=== PATIENT | male | born 1945 | race Caucasian/White ===

== ENCOUNTER 2023-08-07 14:28 | Emergency (ER) | payer MEDICARE, SELFPAY ==
[2023-08-07 14:34] VITALS: BP 145/80
[2023-08-07 14:38] VITALS: BMI 32.1
--- NOTE | 2023-08-07 14:54 | ED.GENMED ---
History of Present Illness
<Bridgett Parr PA-C - Last Filed: 08/09/23 09:01>
General
Chief Complaint: Fall
Source: patient
Exam Limitations: none
Time Seen by Provider: 08/07/23 14:41
Nursing documentation reviewed up to this point in time: agreed with
Travel History
Have you had any contact with someone who has COVID-19?: No
Do you have any symptoms of coronavirus? Fever > 100 degrees, chills, cough, shortness of breath, sore throat, loss of taste or smell, muscle aches, or headache?: No
History of Present Illness
History of Present Illness:
78 Y/O m WITH H/O HTN, HLD, SPINAL STEONSIS, CHRONIC WEAKNESS LEFT LEG POLIO
uses walker
wass going to see dr. smith in the office at the [facility] and the door swung and knocked him backwards onto his back
no head strike, no thinners
having lower back and bilateral hip pain
no incontinence, no weakensin he legs, no new numbness
no headache, dizziness, cp, sob, abdominal pain
ems called for transport here
Past History
<Bridgett Parr PA-C - Last Filed: 08/09/23 09:01>
Past History
ED Past Medical History: Cancer (Prostate), HTN, Hypercholesterolemia and Other (Polio)
ED Past Surgical History: Appendectomy, Orthopedic (Status post recent left total knee surgery ), Urological (Prostatectomy) and Other (Bariatric)
Social History
Tobacco: Non-smoker
Alcohol: Occasional
Personal: Single
Living: alone
Employment: Retired
Family History
Family History: Negative Diabetes, Hypertension or Early CAD
Review of Systems
<KAEL Varela Last Filed: 08/09/23 09:01>
Review of Systems
Allergies reviewed?: Yes
All Other Systems: Not applicable
Phy Exam
<Bridgett Parr PA-C - Last Filed: 08/09/23 09:01>
Physical Exam
Physical Exam:
GENERAL: Alert , in no apparent distress
HEAD: NCAT
NECK: no midline tenderness, active ROM intact, no paraspinal muscle tenderness;
EYE: pupils equal and reactive, EOMs intact.
ENT: o/p clr, mmm. no hemotympanum
CARDIAC: Regular rate and rhythm, no edema
LUNGS: Clear breath sounds bilaterally, no acute respiratory distress, no wheezes/rales/rhonchi
ABDOMEN: Soft, without focal tenderness, no r/g, no cvat'
back:
NEUROLOGICAL: Alert and oriented, no focal neuro deficits, CN intact, 5/5 strength, sensation intact
SKIN: Warm and dry,
MUSCULOSKELETAL: No edema, well perfused.
PSYCH: Normal and appropriate interaction.
Course
<Bridgett Parr PA-C - Last Filed: 08/09/23 09:01>
Orders/Labs/Results
Orders:
Orders
08/07/23 14:49
CR Hips ELIZABETH w/wo Pel Min 5 Vw* Urgent
Reason For Exam: fall backwards, b/l hip pain
Include a pelvis x-ray?: Yes
CR Lumbar Spine 2 Or 3 Views Urgent
Reason For Exam: fall lower back pain
08/07/23 14:50
Acetaminophen [Tylenol] 650 mg PO NOW STA
Vital Signs
Initial and Last Documented VS:
Initial Vital Signs
Temp Pulse Resp BP Pulse Ox
98.0 F 60 16 145/80 98
08/07/23 14:34 08/07/23 14:34 08/07/23 14:34 08/07/23 14:34 08/07/23 14:34
Last Documented Vital Signs
Temp Pulse Resp BP Pulse Ox
98.0 F 60 16 145/80 98
08/07/23 14:34 08/07/23 14:34 08/07/23 14:34 08/07/23 14:34 08/07/23 14:34
<Aurelio Evans PA-C - Last Filed: 08/07/23 16:56>
Orders/Labs/Results
Orders:
Orders
08/07/23 14:49
CR Hips ELIZABETH w/wo Pel Min 5 Vw* Urgent
Reason For Exam: fall backwards, b/l hip pain
Include a pelvis x-ray?: Yes
CR Lumbar Spine 2 Or 3 Views Urgent
Reason For Exam: fall lower back pain
08/07/23 14:50
Acetaminophen [Tylenol] 650 mg PO NOW STA
Vital Signs
Initial and Last Documented VS:
Initial Vital Signs
Temp Pulse Resp BP Pulse Ox
98.0 F 60 16 145/80 98
08/07/23 14:34 08/07/23 14:34 08/07/23 14:34 08/07/23 14:34 08/07/23 14:34
Last Documented Vital Signs
Temp Pulse Resp BP Pulse Ox
98.0 F 60 16 145/80 98
08/07/23 14:34 08/07/23 14:34 08/07/23 14:34 08/07/23 14:34 08/07/23 14:34
<Bridgett Parr PA-C - Last Filed: 08/09/23 09:01>
MDM/Problems Addressed
Differential Diagnosis Includes:
lumbar fracture, hip fracture, bruise
MDM/Problems Addressed:
78 y/o M with htn, hld, polio
fall here at the [facility] int he door for an appointment
bakwards onto his back/hips
was picked up and transported
uses a walker at baseline
no head sstrike, neck pain, loc, cp, sob
on exa mpt has pain with movmenet of his back
neg straight leg raise
able to range his hips
s/p hip replacements a year or so ago
will eval with xrays
assess weight bearing after films
<Aurelio Evans PA-C - Last Filed: 08/07/23 16:56>
*Critical Care Note
Total Time (30-74mins, 75-104mins- exclusive of procedures): Not Applicable
<Aurelio Evans PA-C - Last Filed: 08/07/23 16:56>
Update Note
Update Note:
Received care of patient upon signout pending x-rays. I have personally reviewed x-rays of the lumbar spine and pelvis. There is no acute traumatic injury noted on these films. Radiology agrees. Will ambulate the patient and if he is able to do
so will be discharged
Patient able to ambulate to and from the bathroom with his walker. Stable for discharge home with Tylenol for pain.
ED Attending Note
<Bridgett Parr PA-C - Last Filed: 08/09/23 09:01>
-
Portions of this chart may have been created with voice recognition software.� Occasional wrong word or��sound alike� substitutions may have occurred due to the inherent limitations of voice recognition software.
Discharge Plan
Departure
Patient Disposition: Home (Routine Discharge)
Date of Disposition: 08/07/23
Time of Disposition: 16:55
Patient with high blood pressure during this ER visit?: No
Discharge Problem:
Fall
Instructions: Preventing falls in adults
Prescriptions:
No Action
Multivitamin Gummies
1 tab PO DAILY
acetaminophen [Tylenol Extra Strength] 500 MG tablet
500 mg PO TID PRN (Reason: pain)
furosemide [Lasix] 40 mg Tablet
40 mg PO DAILY
metoprolol succinate [Toprol XL] 25 mg Tablet Extended Release 24 Hr
25 mg PO DAILY
losartan 50 MG tablet
50 mg PO DAILY Qty: 30 0RF
atorvastatin 40 MG tablet
40 mg PO QPM Qty: 30 0RF
trazodone 50 MG tablet
50 mg PO HS Qty: 30 0RF
paroxetine HCl 20 MG tablet
20 mg PO HS Qty: 30 0RF
pantoprazole 40 MG tablet,delayed release (DR/EC)
40 mg PO DAILY Qty: 30 0RF
Referrals:
Dale Reynolds I., DO [Family Provider] -
Activity Restrictions/Additional Instructions:
Use Tylenol if needed for pain. Use her walker for ambulation peer return here if worse otherwise follow-up with your treating physicians
Interventions
Interventions:
*Risk Screen - Suicide Last Done: 08/07/23 14:34
*General Assessment Last Done: 08/07/23 14:34
*Neglect/Abuse Screening Last Done: 08/07/23 14:34
ED- Fall Risk Assessment Last Done: 08/07/23 14:34
*ED COVID-19 Vaccine History Last Done: 08/07/23 14:34
*Nursing Disposition Last Done: 08/07/23 17:15
ED-Musculoskeletal Assessment Last Done: 08/07/23 14:34
ED- Neurological Assessment Last Done: 08/07/23 14:38
ED-Skin Assessment Last Done: 08/07/23 14:38
Discharge Date and Time
Discharge Date/Time: 08/07/23 17:21
Print Language: LITHUANIAN
[2023-08-07] MEDS: TYLENOL 650 MG PO (15:00)
== END 2023-08-07 17:21 | disposition home or self-care (01) ==
LOC: EMR 14:28
PROVIDERS: EMERGENCY PHYSICIAN Emergency Medicine; FAMILY PHYSICIAN Internal Medicine
DX: M54.50 Low back pain, unspecified (principal); M25.552 Pain in left hip; M25.551 Pain in right hip; I10 Essential (primary) hypertension; E78.00 Pure hypercholesterolemia, unspecified; W22.8XXA Striking against or struck by other objects, initial encounter
CPT/HCPCS: 99283; 72100; 73523

== ENCOUNTER → 2023-09-15 10:47 | Outpatient (REF) | payer MEDICARE, SELFPAY ==
[2023-09-15 12:18] LABS: PSA, Total - Diagnostic 0.15 ng/ml (0.0-4.0)
== END ==
LOC: REG 10:47
PROVIDERS: ATTENDING PHYSICIAN Specialist; FAMILY PHYSICIAN Internal Medicine
DX: C61 Malignant neoplasm of prostate (principal)
CPT/HCPCS: 36415; 84153

== ENCOUNTER → 2024-07-25 08:14 | Outpatient (REF) | payer MEDICARE, SELFPAY ==
[2024-07-25 09:08] LABS: % Basophils 1.2 % (0-2); % Eosinophils 3.4 % (0-6); % Immature Granulocytes 0.4 % (0-0.5); % Lymphocytes 30.1 % (20.5-51.1); % Monocytes 10.6 % (1.7-9.3); % Neutrophils 54.3 % (42.2-75.2); Absolute Basophils 0.1 10^3/uL (0-0.2); Absolute Eosinophils 0.2 10^3/uL (0-0.7); Absolute Lymphocytes 1.5 10^3/uL (1.2-3.4); Absolute Monocytes 0.5 10^3/uL (0.1-0.6); Absolute Neutrophils 2.7 10^3/uL (1.4-6.5); Hematocrit 31.9 % (39.0-52.0); Hemoglobin 9.7 g/dL (13.0-18.0); Mean Corp Hgb Conc. 30.4 g/dL (33.0-37.0); Mean Corpuscular Hgb 23.4 pg (27.0-31.0); Mean Corpuscular Volume 77.1 fL (80.0-94.0); Mean Platelet Volume 9.6 fL (7.4-10.4); Nucleated Red Blood Cells % 0 % (-); Platelet Count 216 10^3/uL (130-400); Red Blood Cell Count 4.14 10^6/uL (4.70-6.10); Red Cell Dist. Width 18.8 % (11.5-14.5)
[2024-07-25 09:10] LABS: Ionized Calcium 1.21 mMOL/L (1.15-1.33)
[2024-07-25 10:07] LABS: Albumin 3.5 g/dl (3.5-5.0); Blood Urea Nitrogen 21 mg/dl (9-20); Carbon Dioxide 27 mmol/L (22-30); Chloride 110 mmol/L (98-107); Glucose 87 mg/dl (70-99); Total Cholesterol 117 mg/dl (50-199); Total Protein 6.3 g/dl (6.3-8.2); eGFR > 60.00
[2024-07-25 10:21] LABS: ALT (SGPT) 13 U/L (0-50); AST (SGOT) 18 U/L (17-59); Alkaline Phosphatase 82 U/L (38-126); Calcium 9.1 mg/dl (8.4-10.2); Direct Bilirubin 0.3 mg/dl (0.0-0.4); HDL Cholesterol 52 mg/dl; Iron 34 ug/dl (49-181); LDL Cholesterol, Calculated 55 mg/dl; Magnesium 1.8 mg/dl (1.6-2.3); Potassium 3.9 mmol/L (3.5-5.1); Sodium 142 mmol/L (135-145); Total Bilirubin 0.6 mg/dl (0.2-1.3); Triglyceride 50 mg/dl (10-149); Very Low Density Lipoprotein 10 mg/dl (0-30); Vitamin D, 25-OH*** 36.7 ng/mL (30-80)
[2024-07-25 10:32] LABS: TSH Reflex To Free T4 0.82 uIU/ml (0.47-4.68)
[2024-07-25 10:36] LABS: Ferritin 8.6 ng/ml (17.9-464.0)
[2024-07-25 11:07] LABS: Folate > 20.0 ng/ml (2.76-20); Vitamin B12 461 pg/ml (239-931)
[2024-07-27 05:17] LABS: Zinc 59.8 ug/dL (60.0-120.0)
[2024-07-27 20:29] LABS: Vitamin B1, Whole Blood 160 nmol/L (70-180)
== END ==
LOC: REG 08:14
PROVIDERS: ATTENDING PHYSICIAN Nurse Practitioner Adult Health; FAMILY PHYSICIAN Internal Medicine
DX: D50.9 Iron deficiency anemia, unspecified (principal); I10 Essential (primary) hypertension; E78.00 Pure hypercholesterolemia, unspecified; E53.8 Deficiency of other specified B group vitamins; E78.49 Other hyperlipidemia; Z98.84 Bariatric surgery status; Z79.899 Other long term (current) drug therapy; M17.12 Unilateral primary osteoarthritis, left knee; K21.9 Gastro-esophageal reflux disease without esophagitis; R53.83 Other fatigue
CPT/HCPCS: 36415; 80053; 80061; 82248; 82306; 82330; 82607; 82728; 82746; 83519; 83540; 83735; 84425; 84443; 84630; 85025

== ENCOUNTER → 2024-11-29 09:14 | Outpatient (REF) | payer MEDICARE, SELFPAY ==
[2024-11-29 11:28] LABS: PSA, Total - Diagnostic 0.19 ng/ml (0.0-4.0)
== END ==
LOC: REG 09:14
PROVIDERS: ATTENDING PHYSICIAN Specialist; FAMILY PHYSICIAN Internal Medicine
DX: C61 Malignant neoplasm of prostate (principal)
CPT/HCPCS: 36415; 84153